=== PATIENT | male | born 1955 | race Caucasian/White ===

== ENCOUNTER 2018-11-22 14:31 | Emergency (ER) | payer OTHER ==
[~2018-11-22] VITALS: Ht 170.2 cm; Wt 75.7 kg
--- NOTE | 2018-11-22 14:41 | ED Lower Extremity ---
General Stated Complaint: CIFUENTES INJURY Source: patient Exam Limitations: no limitations History of Present Illness Date Seen by Provider: Nov 22, 2018 Time Seen by Provider: 14:39 Initial Comments To ER per [facility] with reports of a lower extremity injury. Patient was at work when the right lower leg became trapped between a motorized sled carrying a couple of of pallets pinned his right leg against the wall. He denies any other injury. There is a small laceration to the site. He received 50 Ranjith grams of fentanyl in route to the hospital. Onset: just prior to arrival Severity: moderate Pain/Injury Location: right leg Method of Injury: direct blow Modifying Factors: Worse With Movement Allergies and Home Medications Allergies Coded Allergies: No Known Drug Allergies (Unverified , 11/22/18) Home Medications No Active Prescriptions or Reported Meds Patient Home Medication List Home Medication List Reviewed: Yes Review of Systems Constitutional: see HPI EENTM: see HPI Respiratory: no symptoms reported Cardiovascular: no symptoms reported Genitourinary: no symptoms reported Musculoskeletal: no symptoms reported Skin: no symptoms reported Psychiatric/Neurological: No Symptoms Reported Physical Exam Vital Signs Vital Signs - First Documented 11/22/18 15:02 Temp 98.4 Pulse 67 Resp 18 B/P (MAP) 154/95 (114) Pulse Ox 99 Capillary Refill : Height, Weight, BMI Height: '" Weight: lbs. oz. kg; BMI Method: General Appearance: WD/WN, no apparent distress HEENT: PERRL/EOMI, normal ENT inspection Neck: non-tender, full range of motion Respiratory: no respiratory distress, no accessory muscle use Gastrointestinal: normal bowel sounds, non tender, soft; No distended, No guarding, No rebound, No tenderness Hips: bilateral hip non-tender, bilateral hip normal inspection, bilateral hip normal range of motion Legs: bilateral leg non-tender, bilateral leg normal inspection, bilateral leg normal range of motion; right leg other (there is no ecchymosis and no swelling or deformity. There is a 1 cm laceration to the anteromedial aspect of the right lower leg that is medial to the medial border of the tibia. He has a strong dorsalis pedis pulse and good capillary refill and sensation of the toes. ) Knees: bilateral knee non-tender, bilateral knee normal inspection, bilateral knee normal range of motion Ankles: bilateral ankle non-tender, bilateral ankle normal inspection, bilateral ankle normal range of motion Feet: bilateral foot non-tender, bilateral foot normal inspection, bilateral foot normal range of motion Neurologic/Psychiatric: alert, normal mood/affect, oriented x 3 Skin: normal color, warm/dry Progress/Results/Core Measures Results/Orders Lab Results Laboratory Tests Test 11/22/18 15:17 Range/Units White Blood Count 14.7 H 4.3-11.0 10^3/uL Red Blood Count 4.30 L 4.35-5.85 10^6/uL Hemoglobin 13.3 13.3-17.7 G/DL Hematocrit 39 L 40-54 % Mean Corpuscular Volume 90 80-99 FL Mean Corpuscular Hemoglobin 31 25-34 PG Mean Corpuscular Hemoglobin Concent 34 32-36 G/DL Red Cell Distribution Width 12.6 10.0-14.5 % Platelet Count 253 130-400 10^3/uL Mean Platelet Volume 9.6 7.4-10.4 FL Neutrophils (%) (Auto) 85 H 42-75 % Lymphocytes (%) (Auto) 9 L 12-44 % Monocytes (%) (Auto) 6 0-12 % Eosinophils (%) (Auto) 0 0-10 % Basophils (%) (Auto) 0 0-10 % Neutrophils # (Auto) 12.5 H 1.8-7.8 X 10^3 Lymphocytes # (Auto) 1.4 1.0-4.0 X 10^3 Monocytes # (Auto) 0.9 0.0-1.0 X 10^3 Eosinophils # (Auto) 0.0 0.0-0.3 10^3/uL Basophils # (Auto) 0.0 0.0-0.1 10^3/uL My Orders Orders - GEORGINA MARCUS APRN Cbc With Automated Diff (11/22/18 14:38) Comprehensive Metabolic Panel (11/22/18 14:38) Iv Heplock-Insert (Order) (11/22/18 14:38) Tibia/Fibula, Right, 2 Views (11/22/18 14:38) Dipht,Pertuss(Acell),Tet Adult (Boostrix (11/22/18 14:45) Cefazolin Injection (Ancef Injection) (11/22/18 15:15) Manual Differential (11/22/18 15:17) Medications Given in ED Current Medications Medications Dose Ordered Sig/Patricia Route Start Time Stop Time Status Last Admin Dose Admin Cefazolin Sodium 1000 mg/Sodium Chloride 50 ml @ 100 mls/hr ONCE ONCE IV 11/22/18 15:15 11/22/18 15:44 DC 11/22/18 15:29 100 MLS/HR Diphtheria/ Tetanus/Acell Pertussis 0.5 ml ONCE ONCE IM 11/22/18 14:45 11/22/18 14:46 DC 11/22/18 15:09 0.5 ML Vital Signs/I&O 11/22/18 15:02 Temp 98.4 Pulse 67 Resp 18 B/P (MAP) 154/95 (114) Pulse Ox 99 Diagnostic Imaging Diagonstic Imaging: Xray Comments NAME: WILLIS TOWNSEND [facility] REC#: [id number] PT STATUS: REG ER : 1955 PHYSICIAN: GEORGINA MARCUS APRN ADMIT DATE: 11/22/18/ER Draft Date of Exam:11/22/18 TIBIA/FIBULA, RIGHT, 2 VIEWS INDICATION: Crush injury involving the lower leg. EXAMINATION: Two views of the right tibia and fibula. FINDINGS: There is a subtle essentially nondisplaced distal tibial fracture which on the lateral view can be seen to extend coronally and longitudinally into the joint surface. The distal element of that fracture is not appreciable on the frontal view. Cortical disruption along the medial cortex is visualized, commencing proximally about 7.5 cm above the articular surface. Just above that level a nondisplaced fracture through the shaft of the distal third of the fibular diaphysis is present. There are overlying soft tissue irregularities as well as soft tissue gas dissecting about the calf, open injury therefore could not be excluded. Proximally the tibia and fibula were intact. No widening of the mortise. The talar dome appears intact. IMPRESSION: Coronally oriented distal tibial fracture with intra-articular extension, roughly 8 cm in length, with an adjacent fibular shaft fracture, nondisplaced as well as soft tissue gas dissecting about the lower leg, posteriorly. No proximal osseous injury. Dictated on workstation # [id number] Dict: 11/22/18 1503 Trans: 11/22/18 1512 MERGED WITH [facility] [id number] Interpreted by: BYA LINTON Electronically signed by: Departure Communication (Admissions) [id number] do not have orthopedic coverage today. I spoke with Dr. Patel from the emergency room at [facility] in [place]. They agree to accept the patient. Patient placed in a posterior long-leg splint using 5 inch Ortho- Glass. Remains neurovascularly intact after this. He is only received 50 Ranjith grams of fentanyl by EMS, nothing for us, states his pain is tolerable. Impression Primary Impression: Fracture, tibia and fibula Disposition: XFER SHT-TRM HOSP Condition: Stable Departure-Patient Inst. Decision time for Depature: 15:17 Scripts No Active Prescriptions or Reported Meds GEORGINA MARCUS APRN Nov 22, 2018 14:41
[2018-11-22] MEDS ORDERED: TETANUS,DIPTH,PERTUSS P/F (BOOSTRIX) 0.5 ML VIAL IM ONE (14:45)
--- NOTE | 2018-11-22 15:13 | Diagnostic Imaging Report ---
INDICATION: Crush injury involving the lower leg. EXAMINATION: Two views of the right tibia and fibula. FINDINGS: There is a subtle essentially nondisplaced distal tibial fracture which on the lateral view can be seen to extend coronally and longitudinally into the joint surface. The distal element of that fracture is not appreciable on the frontal view. Cortical disruption along the medial cortex is visualized, commencing proximally about 7.5 cm above the articular surface. Just above that level a nondisplaced fracture through the shaft of the distal third of the fibular diaphysis is present. There are overlying soft tissue irregularities as well as soft tissue gas dissecting about the calf, open injury therefore could not be excluded. Proximally the tibia and fibula were intact. No widening of the mortise. The talar dome appears intact. IMPRESSION: Coronally oriented distal tibial fracture with intra-articular extension, roughly 8 cm in length, with an adjacent fibular shaft fracture, nondisplaced as well as soft tissue gas dissecting about the lower leg, posteriorly. No proximal osseous injury. Dictated by: Dictated on workstation # [id number]
[2018-11-22] MEDS ORDERED: ceFAZolin INJECTION 1,000 MG in NS (IVPB) 50 ML IV ONE (15:15)
[2018-11-22 15:33] LABS: BASOPHILS % (AUTO) 0 % (0-10); EOSINOPHILS % (AUTO) 0 % (0-10); HEMATOCRIT 39 % (40-54); HEMOGLOBIN 13.3 G/DL (13.3-17.7); LYMPHOCYTES # (AUTO) 1.4 X 10^3 (1.0-4.0); LYMPHOCYTES % (AUTO) 9 % (12-44); MEAN CORPUSCULAR HEMOGLOBIN 31 PG (25-34); MEAN CORPUSCULAR HGB CONC 34 G/DL (32-36); MEAN CORPUSCULAR VOLUME 90 FL (80-99); MEAN PLATELET VOLUME 9.6 FL (7.4-10.4); MONOCYTES # (AUTO) 0.9 X 10^3 (0.0-1.0); MONOCYTES % (AUTO) 6 % (0-12); NEUTROPHILS # (AUTO) 12.5 X 10^3 (1.8-7.8); NEUTROPHILS % (AUTO) 85 % (42-75); PLATELET COUNT 253 10^3/uL (130-400); RED CELL DISTRIBUTION WIDTH 12.6 % (10.0-14.5); WHITE BLOOD COUNT 14.7 10^3/uL (4.3-11.0)
[2018-11-22 15:59] LABS: ALBUMIN 4.1 GM/DL (3.2-4.5); BILIRUBIN,TOTAL 0.4 MG/DL (0.1-1.0); CALCIUM 9.1 MG/DL (8.5-10.1); CREATININE SERUM 1.27 MG/DL (0.60-1.30); POTASSIUM 3.8 MMOL/L (3.6-5.0); TOTAL PROTEIN 7.1 GM/DL (6.4-8.2)
[2018-11-22 16:04] VITALS: BP 132/78
[2018-11-22 16:22] LABS: BAND NEUTROPHILS 2 %; BASOPHILS % (MANUAL) 0 %; EOSINOPHILS % (MANUAL) 0 %; LYMPHOCYTES % (MANUAL) 15 %; MONOCYTES % (MANUAL) 1 %; NEUTROPHILS % (MANUAL) 82 %; RBC MORPH NORMAL
== END 2018-11-22 16:10 | disposition short-term general hospital (02) ==
LOC: ER 14:33 → EDSEX 14:33 → ER 16:10
DX: S82.391A Other fracture of lower end of right tibia, initial encounter for closed fracture (principal); S82.491A Other fracture of shaft of right fibula, initial encounter for closed fracture; V29.88XA Motorcycle rider (driver) (passenger) injured in other specified transport accidents, initial encounter; Y99.0 Civilian activity done for income or pay
CPT/HCPCS: 29505; 36415; 73590; 80053; 85007; 85027; 90715